=== PATIENT | male | born 1935 | race African-American/Black ===

== ENCOUNTER 2019-12-09 17:49 | Inpatient (IN) | payer MEDICARE, BC ==
[~2019-12-09] VITALS: Ht 175.3 cm; Wt 61.4 kg
[2019-12-09 20:20] VITALS: BP 127/65
[2019-12-09] MEDS ORDERED: NEPRO CARB STE237 ML PO (22:00)
[2019-12-09] MEDS ORDERED: ELIQUIS2.5 MG PO (22:00)
[2019-12-09] MEDS ORDERED: DOCUSATE SODIU250 MG ORAL (22:00)
[2019-12-09] MEDS ORDERED: DIALYVITE 3,001 EACH PO (22:00)
[2019-12-09] MEDS ORDERED: SEVELAMER HCL800 MG PO (22:00)
[2019-12-09] MEDS ORDERED: [UNRECOGNIZED DRUG - OTHER] PO (22:00)
[2019-12-09] MEDS ORDERED: FERROUS SULFAT325 MG ORAL (22:00)
[2019-12-09] MEDS ORDERED: epogen (22:00)
[2019-12-09] MEDS ORDERED: LIPITOR80 MG ORAL (22:00)
[2019-12-09] MEDS ORDERED: ASPIRIN81 MG ORAL (22:00)
[2019-12-09] MEDS ORDERED: CINACALCET HCL60 MG PO (22:00)
[2019-12-09] MEDS ORDERED: MIRALAX17 G2 ORAL (22:00)
[2019-12-09] MEDS ORDERED: [UNRECOGNIZED DRUG - OTHER] (22:05)
[2019-12-09] MEDS ORDERED: OXYCODONE HCL5 M2 ORAL (22:05)
[2019-12-09] MEDS ORDERED: ACETAMINOPHEN325 M1 ORAL (22:05)
[2019-12-09] MEDS ORDERED: oxyCODONE 5mg IR tab ORAL PRN (22:15)
[2019-12-10] VITALS: BP 110/57
[2019-12-10 04:00] VITALS: BP 108/59
[2019-12-10 07:23] LABS: BASOPHILS % (AUTO) 1.3 % (0.0-2.0); EOSINOPHILS % (AUTO) 2.1 % (0.0-3.0); HEMATOCRIT 24.6 % (42.0-52.0); HEMOGLOBIN 8.4 G/DL (14.2-18.0); LYMPHOCYTES % (AUTO) 28.8 % (20.0-45.0); MEAN CORPUSCULAR VOLUME 85 FL (80-99); MONOCYTES % (AUTO) 10.2 % (1.0-10.0); NEUTROPHILS % (AUTO) 57.7 % (45.0-75.0); PLATELET COUNT 177 K/UL (150-450); RED BLOOD COUNT 2.89 M/UL (4.70-6.10); RED CELL DISTRIBUTION WIDTH 12.7 % (11.6-14.8); WHITE BLOOD COUNT 5.8 K/UL (4.8-10.8)
[2019-12-10 07:25] LABS: % IRON SATURATION 33 % (15-50); IRON 52 ug/dL (50-175); TOTAL IRON BINDING CAPACITY 160 ug/dL (250-450)
[2019-12-10 07:47] LABS: ALANINE AMINOTRANSFERASE 15 U/L (12-78); ALBUMIN 2.9 G/DL (3.4-5.0); ALBUMIN/GLOBULIN RATIO 0.7 (1.0-2.7); ALKALINE PHOSPHATASE 103 U/L (46-116); ANION GAP 10 mmol/L (5-15); ASPARTATE AMINO TRANSFERASE 9 U/L (15-37); BILIRUBIN,TOTAL 0.3 MG/DL (0.2-1.0); BLOOD UREA NITROGEN 61 mg/dL (7-18); CALCIUM 8.8 MG/DL (8.5-10.1); CARBON DIOXIDE 29 MMOL/L (21-32); CHLORIDE 104 MMOL/L (98-107); CREATININE 7.8 MG/DL (0.55-1.30); POTASSIUM 3.5 MMOL/L (3.5-5.1); SODIUM 143 MMOL/L (136-145)
[2019-12-10 08:00] VITALS: BP 112/54
--- NOTE | 2019-12-10 08:30 | History and Physical Report ---
DATE OF ADMISSION: 12/09/2019 CHIEF COMPLAINT: Anemia, possible GI bleed, failure to thrive. HISTORY OF PRESENT ILLNESS: The patient is an 84-year-old male, known to me from the nursing home facility. He has had worsening anemia, etiology of which is unclear. Staff noted dark stools. There is concern about a possible GI bleed. In addition, the patient has not been eating well, has been more weak, has been mostly in bed. Because of the significant anemia, concerned about bleed. He is now admitted for further evaluation and care. PAST MEDICAL HISTORY: Significant for history of chronic kidney disease on hemodialysis, hypertension, atherosclerotic cardiovascular disease, diabetes, gait instability, questionable history of DVT, history of cervical radiculopathy and degenerative disc disease, status post discectomy. PAST SURGICAL HISTORY: Includes CABG and AV fistula. CURRENT MEDICATIONS: Reconciled and reviewed. ALLERGIES: None. FAMILY HISTORY: None. SOCIAL HISTORY: The patient is a prior smoker. No alcohol. No drugs. REVIEW OF SYSTEMS: GENERAL: Positive malaise, weakness. HEENT: No headaches or visual changes. CARDIOPULMONARY: No chest pain or shortness of breath. GASTROINTESTINAL: No nausea or vomiting. GENITOURINARY: No urgency or frequency. MUSCULOSKELETAL: No joint pain or swelling. NEUROLOGIC: No evidence of seizures. PHYSICAL EXAMINATION: VITAL SIGNS: Temperature 98 degrees, blood pressure 140/76, pulse 80, respirations 20. GENERAL: The patient is well developed, no apparent distress. HEART: Regular rate and rhythm. LUNGS: Clear. ABDOMEN: Soft, nontender, nondistended. EXTREMITIES: Without clubbing, cyanosis, or edema. LABORATORY DATA: Most recent laboratory showed hemoglobin 8.3, baseline was in the 11 to 12 range. ASSESSMENT: This is a pleasant male with a history of end-stage renal disease, anemia, diabetes, hypertension, history of ischemic cardiomyopathy, status post CABG, history of degenerative disc disease, status post cervical discectomy. PLAN: Followup laboratories. Check stool for occult blood. Eliquis and aspirin will be held until stool OB and hemoglobin is back. Renal and Cardiology consultations will be obtained. If stool occult blood is positive, he may require endoscopy. We will check a venous duplex of the legs. an EKG prior to reassess the indications for Apixaban as the patient is unclear of why he is currently on the medication. Kel Vazquez M.D. DR: TRICIA JOB#: [id number] CC:
[2019-12-10] MEDS: Docusate 250mg cap ORAL SCH ×2 (09:00→18:40)
[2019-12-10] MEDS ORDERED: Atorvastatin 80mg tab ORAL SCH (09:00)
[2019-12-10 10:28] LABS: FERRITIN 776 NG/ML (8-388)
--- NOTE | 2019-12-10 10:55 | Consultation ---
Consult Note Consult Note I was asked to evaluate the patient at the request of Dr. Vazquez for dialysis management. Patient was interviewed in room 301. He is a poor historian. He states that he gets dialysis Saturday in [facility]. He has been on dialysis for the past 5 years. Patient was admitted for :anemia, possible GI bleed, failure to thrive. The patient is an 84-year-old male, known to me from the [facility] facility. He has had worsening anemia, etiology of which is unclear. Staff noted dark stools. There is concern about a possible GI bleed. In addition, the patient has not been eating well, has been more weak, has been mostly in bed. Because of the significant anemia, concerned about bleed. He is now admitted for further evaluation and care. PAST MEDICAL HISTORY: chronic kidney disease on hemodialysis, hypertension, atherosclerotic cardiovascular disease, diabetes, gait instability, questionable history of DVT, history of cervical radiculopathy and degenerative disc disease, status post discectomy. ischemic cardiomyopathy, status post CABG Patient examined Reviewed Patient has an arm fistula for dialysis access . Assessment/Plan End-stage renal disease. HD 3 times a week. Severe anemia Failure to thrive CAD elevated Troponi HD today 2D echo Hold anticoags and asa monitor H&H GI eval per consultants Richie Vega MD Dec 10, 2019 10:55
[2019-12-10 11:00] LABS: % IRON SATURATION 32 % (15-50); IRON 53 ug/dL (50-175); TOTAL IRON BINDING CAPACITY 166 ug/dL (250-450)
[2019-12-10 12:00] VITALS: BP 114/57
[2019-12-10] MEDS ORDERED: Docusate 100mg cap ORAL SCH (13:00)
[2019-12-10 16:00] VITALS: BP 127/62
[2019-12-10] MEDS ORDERED: NovoLOG Insulin Flexpen SUBQ SCH (16:30)
[2019-12-10] MEDS ORDERED: Eliquis 2.5mg tablet ORAL SCH (18:00)
[2019-12-10 20:00] VITALS: BP 116/71
[2019-12-10] MEDS ORDERED: oxyCODONE 5mg IR tab ORAL PRN (21:00)
[2019-12-10] MEDS: NovoLOG Insulin Flexpen SUBQ SCH (21:00)
[2019-12-11] VITALS: BP 88/43
[2019-12-11 04:00] VITALS: BP 95/55
--- NOTE | 2019-12-11 06:15 | Consultation ---
DATE OF CONSULTATION: 12/10/2019 CARDIOLOGY CONSULTATION NOTE CONSULTING PHYSICIAN: Johan Graff M.D. REQUESTING PHYSICIAN: Kel Vazquez M.D. REASON FOR CONSULTATION: Atrial flutter in the setting of possible gastrointestinal bleed. HISTORY OF PRESENT ILLNESS: This 84-year-old male, resides at a intermediate facility. He has had progressive anemia. He was noted to have dark stools. He was transferred to the hospital for further evaluation. He has been on both anti-platelet and anticoagulant therapies. He has a history of atrial flutter and fibrillation and prior coronary artery bypass grafting for coronary artery disease. The patient has not had any chest pain. Denies shortness of breath or abdominal pain. He has not had any vomiting or bright red blood per rectum. PAST MEDICAL HISTORY: End-stage renal disease on hemodialysis, hypertensive heart disease, arteriosclerotic cardiovascular disease, coronary artery disease with prior coronary artery bypass grafting, type 2 diabetes mellitus, possible history of DVT, cervical radiculopathy, degenerative disk disease, history of discectomy, chronic obstructive pulmonary disease. MEDICATIONS: Reviewed and reconciled. ALLERGIES: None known. FAMILY HISTORY: Noncontributory. SOCIAL HISTORY: Prior smoker. No alcohol or substance abuse. REVIEW OF SYSTEMS: No history of retinopathy known. No recent use of steroids. No history of prostate cancer or elevated PSA. He does have back and joint pain and has recent discectomy. No history of seizures. 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 He has not had any complaints of chest pain. He had a prior coronary artery bypass grafting. He has chronic atrial flutter and is on anticoagulation. There is no record of his cardiac ejection fraction at this time. PHYSICAL EXAMINATION: VITAL SIGNS: Blood pressure 140/76, pulse 80, respirations 20, afebrile. HEENT: Conjunctivae pink. Oropharynx clear. NECK: Supple. LUNGS: With bilateral breath sounds. CARDIAC: Irregularly irregular. Normal S1 and S2 with a 1/6 systolic apical murmur. ABDOMEN: Soft and nontender. EXTREMITIES: No edema. No calf tenderness. LABORATORY DATA: Hemoglobin 8.4. DIAGNOSTIC DATA: EKG reveals atrial flutter with variable block and nonspecific ST changes. IMPRESSION: 1. Possible gastrointestinal bleeding. 2. Anemia, likely multifactorial. 3. Ischemic cardiomyopathy with stable angina. 4. Hypertension with controlled blood pressure. 5. End-stage renal disease, on hemodialysis. 6. Chronic atrial flutter/fibrillation, rate controlled. PLAN: 1. Stool occult blood. 2. Iron panel. 3. Hold anticoagulation and anti-platelet therapy. 4. Venous duplex scan of lower extremities. 5. Echocardiogram to assess left ventricular ejection fraction. 6. Titrate anti-failure regimen based on clinical parameters and results of echocardiogram. 7. Final decisions regarding long-term anticoagulation will depend on diagnostic workup. Johan Graff M.D. DR: Dipti JOB#: [id number] CC:
[2019-12-11] MEDS: NovoLOG Insulin Flexpen SUBQ SCH ×4 (06:30→21:00)
[2019-12-11 06:44] LABS: BASOPHILS % (AUTO) 0.7 % (0.0-2.0); EOSINOPHILS % (AUTO) 2.2 % (0.0-3.0); HEMATOCRIT 24.6 % (42.0-52.0); HEMOGLOBIN 8.4 G/DL (14.2-18.0); LYMPHOCYTES % (AUTO) 28.9 % (20.0-45.0); MEAN CORPUSCULAR VOLUME 85 FL (80-99); MONOCYTES % (AUTO) 9.9 % (1.0-10.0); NEUTROPHILS % (AUTO) 58.3 % (45.0-75.0); PLATELET COUNT 166 K/UL (150-450); RED BLOOD COUNT 2.88 M/UL (4.70-6.10); RED CELL DISTRIBUTION WIDTH 12.6 % (11.6-14.8); WHITE BLOOD COUNT 5.5 K/UL (4.8-10.8)
[2019-12-11 07:39] LABS: ALANINE AMINOTRANSFERASE 18 U/L (12-78); ALBUMIN 2.5 G/DL (3.4-5.0); ALBUMIN/GLOBULIN RATIO 0.6 (1.0-2.7); ALKALINE PHOSPHATASE 102 U/L (46-116); ANION GAP 10 mmol/L (5-15); ASPARTATE AMINO TRANSFERASE 13 U/L (15-37); BILIRUBIN,TOTAL 0.2 MG/DL (0.2-1.0); BLOOD UREA NITROGEN 42 mg/dL (7-18); CALCIUM 8.4 MG/DL (8.5-10.1); CARBON DIOXIDE 28 MMOL/L (21-32); CHLORIDE 101 MMOL/L (98-107); CHOLESTEROL 97 MG/DL (< 200); GAMMA GLUTAMYL TRANSPEPTIDASE 25 U/L (5-85); HDL CHOLESTEROL 50 MG/DL (40-60); PHOSPHORUS 1.4 MG/DL (2.5-4.9); POTASSIUM 3.3 MMOL/L (3.5-5.1); SODIUM 139 MMOL/L (136-145); TRIGLYCERIDES 70 MG/DL (30-150)
[2019-12-11 07:54] VITALS: BP 106/57
[2019-12-11] MEDS: Docusate 250mg cap ORAL SCH ×3 (09:00→18:00)
[2019-12-11] MEDS ORDERED: Eliquis 2.5mg tablet ORAL SCH (09:00)
[2019-12-11] MEDS ORDERED: Atorvastatin 80mg tab ORAL SCH ×2 (09:00→21:00)
--- NOTE | 2019-12-11 09:30 | Nephrology Progress Note ---
Assessment/Plan Problem List: (1) ESRD (end stage renal disease) on dialysis (2) Failure to thrive in adult (3) Coronary artery disease (4) Severe anemia Assessment End-stage renal disease. HD 3 times a week. Severe anemia work-up suggestive of anemia related to chronic kidney disease Failure to thrive CAD elevated Troponi Plan Dialyzed last night Magnesium and potassium supplement today 2D echo shows ejection fraction of 50% Hold anticoags and asa monitor H&H GI eval per consultants Subjective ROS Limited/Unobtainable: No Constitutional: Reports: malaise Objective Objective Last 24 Hour Vital Signs Date Time Temp Pulse Resp B/P (MAP) Pulse Ox O2 Delivery O2 Flow Rate FiO2 12/11/19 08:47 Room Air 12/11/19 08:00 52 12/11/19 07:54 98.2 56 18 106/57 (73) 98 12/11/19 04:00 45 12/11/19 04:00 98.1 46 19 95/55 (68) 98 12/11/19 00:00 98.1 48 19 88/43 (58) 98 12/10/19 21:00 Room Air 12/10/19 20:00 98.4 66 19 116/71 (86) 98 12/10/19 20:00 65 12/10/19 16:00 97.4 76 19 127/62 (83) 96 12/10/19 12:00 97.1 58 19 114/57 (76) 95 Intake and Output 12/10/19 12/11/19 19:00 07:00 Intake Total 600 ml 1050 ml Balance 600 ml 1050 ml Intake Oral 600 ml 250 ml Hemodialysis 800 ml # Bowel Movements 2 1 Laboratory Tests 12/11/19 05:40: White Blood Count 5.5, Red Blood Count 2.88L, Hemoglobin 8.4L, Hematocrit 24.6L , Mean Corpuscular Volume 85, Mean Corpuscular Hemoglobin 29.1, Mean Corpuscular Hemoglobin Concent 34.0, Red Cell Distribution Width 12.6, Platelet Count 166, Mean Platelet Volume 7.5, Neutrophils (%) (Auto) 58.3, Lymphocytes (% ) (Auto) 28.9, Monocytes (%) (Auto) 9.9, Eosinophils (%) (Auto) 2.2, Basophils ( %) (Auto) 0.7, Sodium Level 139, Potassium Level 3.3L, Chloride Level 101, Carbon Dioxide Level 28, Anion Gap 10, Blood Urea Nitrogen 42H, Creatinine 6.0H , Estimat Glomerular Filtration Rate 10.9, Glucose Level 126H, Hemoglobin A1c 6.4H, Uric Acid 3.1, Calcium Level 8.4L, Phosphorus Level 1.4L, Magnesium Level 2.1, Total Bilirubin 0.2, Gamma Glutamyl Transpeptidase 25, Aspartate Amino Transf (AST/SGOT) 13L, Alanine Aminotransferase (ALT/SGPT) 18, Alkaline Phosphatase 102, Troponin I 0.079H, C-Reactive Protein, Quantitative < 0.4, Pro- B-Type Natriuretic Peptide 7081H, Total Protein 6.4, Albumin 2.5L, Globulin 3.9 , Albumin/Globulin Ratio 0.6L, Triglycerides Level 70, Cholesterol Level 97, LDL Cholesterol 38, HDL Cholesterol 50, Cholesterol/HDL Ratio 1.9L, Thyroid Stimulating Hormone (TSH) 1.201 Height (Feet): 5 Height (Inches): 9.00 Weight (Pounds): 135 General Appearance: no apparent distress Cardiovascular: normal rate Respiratory/Chest: decreased breath sounds Abdomen: soft Objective No change Richie Vega MD Dec 11, 2019 09:30
[2019-12-11] MEDS ORDERED: Phospha 250 Neutral tab ORAL SCH (10:00)
[2019-12-11 12:00] VITALS: BP 112/57
--- NOTE | 2019-12-11 12:12 | Diagnostic Imaging Report ---
CLINICAL INDICATION:Pain, dark stools, possible GI bleed, anorexia, anemia TECHNIQUE: Patient ingested oral contrast. No IV contrast, per referring physician request. Spiral acquisitions obtained through the chest, abdomen, and pelvis. Multiplanar reconstructions were generated. Total dose length product 352 mGycm. CTDIvol(s) 5 mGy. Radiation dose was minimized using automated exposure control COMPARISON: none FINDINGS Chest: Atelectasis and/or scarring is seen at both lung bases. No infiltrates or effusions. There is a small somewhat ill-defined nodular versus groundglass opacity in the posterior left upper lobe, image 30 series 6. No masses. The heart is upper limits normal in size. There are extensive coronary artery calcifications. The main pulmonary arteries are ectatic, not frankly dilated, each measuring 2.7 cm in diameter. No mediastinal or hilar mass or adenopathy. The thyroid is somewhat heterogeneous bilaterally. No axillary or chest wall mass or adenopathy. There is bilateral gynecomastia. There is edema of the chest wall. There are degenerative changes of the thoracic spine. On the highest cuts, surgical hardware is seen in the cervical spine. Abdomen pelvis: The rectum is distended with stool, measuring up to 9 cm in diameter. There is mild thickening of the rectal wall. There are colonic diverticula. The appendix is normal. No small bowel distention or small bowel wall thickening. No free or loculated intraperitoneal gas or fluid. Lack of IV contrast limits assessment of the solid organs. Calcifications are seen within the liver. The gallbladder, bile ducts, pancreas, spleen, adrenals are unremarkable. The kidneys are somewhat atrophic. A 12 x 7 mm calculus is seen in the left renal lower pole collecting system. Other small calculi are seen within the left renal collecting system. The right kidney demonstrates a 15 mm cyst. No ureteral calculi. No hydronephrosis or hydroureter. The bladder is markedly distended. There are prostatic calcifications. No pelvic mass or adenopathy. There is generalized edema of the subcutaneous fat as well as of the retroperitoneal and abdominal fat. There is generalized dependent skin thickening. The bones demonstrate degenerative spondylosis changes. IMPRESSION: Rectal distention by stool, could indicate rectal fecal impaction. Mild rectal wall thickening could indicate a degree of stercoral proctitis No acute process Ill-defined nodular versus groundglass opacity in the posterior left upper lobe. Recommend short interval follow-up CT scan in 6-12 months if there is significant smoking history or other risk factors for lung carcinoma. No further follow-up necessary if there are no significant risk factors Ectatic but not frankly dilated pulmonary arteries, suggestive of but not diagnostic for pulmonary arterial hypertension Distended bladder Nonspecific heterogeneous thyroid Gynecomastia Colonic diverticulosis. No evidence of diverticulitis Somewhat atrophic bilateral kidneys Multiple nonobstructive left renal calyceal calculi. No evidence of ureteral calculus or hydronephrosis Mild anasarca, with generalized edema of the subcutaneous, retroperitoneal, and abdominal fat Other findings as noted, including degenerative spondylosis, granulomas calcifications within the liver, right renal cyst, prostatic calcifications, basilar pulmonary parenchymal atelectasis and/or scarring, evidence of prior cervical spine surgery The CT scanner at [facility] is accredited by the [employer] and the scans are performed using protocols designed to limit radiation exposure to as low as reasonably achievable to attain images of sufficient resolution adequate for diagnostic evaluation.
--- NOTE | 2019-12-11 13:32 | Consultation ---
History of Present Illness General Date patient seen: Dec 11, 2019 Present Illness HPI This is a very pleasant 84-year-old male with multiple medical committees who is a halfway resident that presented to [facility] for evaluation of arrhythmia, dark stools, failure to thrive. On admission identified to have wounds requiring care and management as well abnormal labs. Patient with malnutrition. Surgery called to evaluate and assist with care plan. Patient seen, patient evaluate, chart reviewed. Patient is awake alert but not a good historian. EMR reviewed for majority of history. Allergies: Coded Allergies: No Known Allergies (Unverified , 12/09/19) Medication History Scheduled Apixaban (Eliquis), 2.5 MG PO BID, (Reported) Aspirin* (Aspirin*), 81 MG ORAL DAILY, (Reported) Atorvastatin (Lipitor), 40 MG ORAL QHS, (Reported) Cinacalcet HCl (Cinacalcet HCl), 60 MG PO DAILY, (Reported) Docusate Sodium* (Docusate Sodium*), 250 MG ORAL TWICE A DAY, (Reported) Fa/Vit Bcomp&C/Se/Min Aa/Zn (Dialyvite 3,000 Tablet), 1 EACH PO DAILY, (Reported ) Ferrous Sulfate* (Ferrous Sulfate*), 325 MG ORAL DAILY, (Reported) Nut.tx.impaired Renal Fxn,Soy (Nepro Carb Steady), 237 ML PO with meals, ( Reported) Polyethylene Glycol 3350* (Miralax*), 17 GM ORAL DAILY, (Reported) Sevelamer HCl (Sevelamer HCl), 800 MG PO AC, (Reported) [renovite], PO DAILY, (Reported) Scheduled PRN Acetaminophen* (Acetaminophen 325MG Tablet*), 650 MG ORAL Q6H PRN for temp, ( Reported) Oxycodone Hcl* (Oxycodone Hcl*), 5 MG ORAL Q6H PRN for For Pain, (Reported) Miscellaneous Medications [epogen], Unknown Dose, (Reported) [guaif], (Reported) Patient History Limited by: age, medical condition History Provided By: Medical Record, PMD Healthcare decision maker Resuscitation status Full Code Advanced Directive on File No Past Medical/Surgical History Past Medical/Surgical History: (1) GIB (gastrointestinal bleeding) (2) Failure to thrive in adult (3) ESRD (end stage renal disease) on dialysis (4) Failure to thrive (5) Coronary artery disease (6) Severe anemia Review of Systems Review of Symptoms General ROS: no weight loss or fever Psychological ROS: no depression or mood changes, no memory loss Ophthalmic ROS: no visual changes or eye irritation ENT ROS: no nasal congestion, hearing loss, dizziness Allergy and Immunology ROS: no allergic symptoms or urticaria Hematological and Lymphatic ROS: no swollen glands, unusual bleeding or bruising Endocrine ROS: no polyuria, polydipsia, weight changes, temperature intolerance Respiratory ROS: no cough, shortness of breath, or wheezing Cardiovascular ROS: no chest pain or dyspnea on exertion Gastrointestinal ROS: denies abdominal pain, bright red blood in stool. Musculoskeletal ROS: no myalgias or arthralgias Neurological ROS: no TIA or stroke symptoms Dermatological ROS: no new or changing skin lesions, rashes or pruritis Minimal able to obtain from patient but seemingly denying most of the above Physical Exam Physical Exam General appearance: alert, cooperative, no distress, appears stated age Head: Normocephalic, without obvious abnormality, atraumatic Eyes: conjunctivae/corneas clear. PERRL, EOM's intact. Fundi benign Throat: Lips, mucosa, and tongue normal. Teeth and gums normal Neck: supple, symmetrical, trachea midline, no adenopathy, thyroid: not enlarged, symmetric, no tenderness/mass/nodules, no carotid bruit and no JVD Lungs: clear to auscultation bilaterally Heart: regular rate and rhythm, S1, S2 normal, no murmur, click, rub or gallop Abdomen: soft, non-tender. Bowel sounds normal. No masses, no organomegaly Extremities: extremities normal, atraumatic, no cyanosis or edema Pulses: 2+ and symmetric Skin: see below Neurologic: Grossly normal Last 24 Hour Vital Signs Date Time Temp Pulse Resp B/P (MAP) Pulse Ox O2 Delivery O2 Flow Rate FiO2 12/11/19 12:00 52 12/11/19 12:00 98.1 66 19 112/57 (75) 98 12/11/19 08:47 Room Air 12/11/19 08:00 52 12/11/19 07:54 98.2 56 18 106/57 (73) 98 12/11/19 04:00 45 12/11/19 04:00 98.1 46 19 95/55 (68) 98 12/11/19 00:00 98.1 48 19 88/43 (58) 98 12/10/19 21:00 Room Air 12/10/19 20:00 98.4 66 19 116/71 (86) 98 12/10/19 20:00 65 12/10/19 16:00 97.4 76 19 127/62 (83) 96 Intake and Output 12/10/19 12/11/19 19:00 07:00 Intake Total 600 ml 1050 ml Balance 600 ml 1050 ml Intake Oral 600 ml 250 ml Hemodialysis 800 ml # Bowel Movements 2 1 Laboratory Tests Test 12/11/19 05:40 White Blood Count 5.5 K/UL (4.8-10.8) Red Blood Count 2.88 M/UL (4.70-6.10) L Hemoglobin 8.4 G/DL (14.2-18.0) L Hematocrit 24.6 % (42.0-52.0) L Mean Corpuscular Volume 85 FL (80-99) Mean Corpuscular Hemoglobin 29.1 PG (27.0-31.0) Mean Corpuscular Hemoglobin Concent 34.0 G/DL (32.0-36.0) Red Cell Distribution Width 12.6 % (11.6-14.8) Platelet Count 166 K/UL (150-450) Mean Platelet Volume 7.5 FL (6.5-10.1) Neutrophils (%) (Auto) 58.3 % (45.0-75.0) Lymphocytes (%) (Auto) 28.9 % (20.0-45.0) Monocytes (%) (Auto) 9.9 % (1.0-10.0) Eosinophils (%) (Auto) 2.2 % (0.0-3.0) Basophils (%) (Auto) 0.7 % (0.0-2.0) Sodium Level 139 MMOL/L (136-145) Potassium Level 3.3 MMOL/L (3.5-5.1) L Chloride Level 101 MMOL/L (98-107) Carbon Dioxide Level 28 MMOL/L (21-32) Anion Gap 10 mmol/L (5-15) Blood Urea Nitrogen 42 mg/dL (7-18) H Creatinine 6.0 MG/DL (0.55-1.30) H Estimat Glomerular Filtration Rate 10.9 mL/min (>60) Glucose Level 126 MG/DL (74-106) H Hemoglobin A1c 6.4 % (4.3-6.0) H Uric Acid 3.1 MG/DL (2.6-7.2) Calcium Level 8.4 MG/DL (8.5-10.1) L Phosphorus Level 1.4 MG/DL (2.5-4.9) L Magnesium Level 2.1 MG/DL (1.8-2.4) Total Bilirubin 0.2 MG/DL (0.2-1.0) Gamma Glutamyl Transpeptidase 25 U/L (5-85) Aspartate Amino Transf (AST/SGOT) 13 U/L (15-37) L Alanine Aminotransferase (ALT/SGPT) 18 U/L (12-78) Alkaline Phosphatase 102 U/L (46-116) Troponin I 0.079 ng/mL (0.000-0.056) C-Reactive Protein, Quantitative < 0.4 mg/dL (0.00-0.90) Pro-B-Type Natriuretic Peptide 7081 pg/mL (0-125) H Total Protein 6.4 G/DL (6.4-8.2) Albumin 2.5 G/DL (3.4-5.0) L Globulin 3.9 g/dL Albumin/Globulin Ratio 0.6 (1.0-2.7) L Triglycerides Level 70 MG/DL (30-150) Cholesterol Level 97 MG/DL (< 200) LDL Cholesterol 38 mg/dL (<100) HDL Cholesterol 50 MG/DL (40-60) Cholesterol/HDL Ratio 1.9 (3.3-4.4) L Thyroid Stimulating Hormone (TSH) 1.201 uiU/mL (0.358-3.740) Height (Feet): 5 Height (Inches): 9.00 Weight (Pounds): 135 Medications Current Medications Medications (Trade) Dose Ordered Sig/Lamar Route PRN Reason Start Time Stop Time Status Last Admin Dose Admin Acetaminophen (Tylenol) 650 mg Q6H PRN ORAL temp 12/10/19 21:00 01/08/20 20:59 Apixaban (Eliquis) 2.5 mg BID ORAL 12/11/19 18:00 01/10/20 17:59 Atorvastatin Calcium (Lipitor) 40 mg QHS ORAL 12/11/19 21:00 01/09/20 08:59 Dextrose (Dextrose 50%) 25 ml Q30M PRN IV Hypoglycemia 12/10/19 20:45 01/09/20 15:44 Dextrose (Dextrose 50%) 50 ml Q30M PRN IV Hypoglycemia 12/10/19 20:45 01/09/20 15:44 Docusate Sodium (Colace) 250 mg TWICE A DAY ORAL 12/11/19 09:00 01/09/20 08:59 Insulin Aspart (NovoLOG) BEFORE MEALS AND HS SUBQ 12/10/19 21:00 01/09/20 16:29 Oxycodone HCl (Roxicodone) 5 mg Q6H PRN ORAL For Pain 12/10/19 21:00 12/16/19 20:59 Pantoprazole (Protonix) 40 mg EVERY 12 HOURS ORAL 12/10/19 21:00 01/09/20 11:29 12/11/19 09:01 Assessment/Plan Problem List: (1) Failure to thrive in adult Assessment & Plan: nutritional optimization will monitor intake cont diet ICD Codes: R62.7 - Adult failure to thrive SNOMED: 109795267 (2) Failure to thrive SNOMED: 99776333 (3) GIB (gastrointestinal bleeding) Assessment & Plan: Dark stools aneamia possible gi bleed but unsure CT reviewed as below. proctitis no active bleeding noted le without gross blood GI eval for scope will follow with recs thank you Rectal distention by stool, could indicate rectal fecal impaction. Mild rectal wall thickening could indicate a degree of stercoral proctitis No acute process Ill-defined nodular versus groundglass opacity in the posterior left upper lobe. Recommend short interval follow-up CT scan in 6-12 months if there is significant smoking history or other risk factors for lung carcinoma. No further follow-up necessary if there are no significant risk factors Ectatic but not frankly dilated pulmonary arteries, suggestive of but not diagnostic for pulmonary arterial hypertension Distended bladder Nonspecific heterogeneous thyroid Gynecomastia Colonic diverticulosis. No evidence of diverticulitis Somewhat atrophic bilateral kidneys Multiple nonobstructive left renal calyceal calculi. No evidence of ureteral calculus or hydronephrosis Mild anasarca, with generalized edema of the subcutaneous, retroperitoneal, and abdominal fat ICD Codes: K92.2 - Gastrointestinal hemorrhage, unspecified SNOMED: 32782719 (4) Decubitus skin ulcer Assessment & Plan: Pt presented on admission with full thickness stage 3 pressure injury L buttocks, resolving ulcer medial lateral R foot. Pt also noted to have several nodules anu chest. One open lesion sternum that 's dry. Pt stated lesions previously had drainage.No erythema or odor noted. Full thickness pressure injury L buttocks. (L)1cm x(W)0.8cm x(L)0.4cm. Base of wound beefy red and moist. Borders are macerated.Small amt serous exudate noted. Dark discoloration without induration or erythema periwound. Scattered areas of hyperpigmentation sacrum and L buttocks. Resolving ulcer medial/lateral R foot. Base of wound is moist, pale pink with small area in center that is red oozing small amt serosanguineous. Edges flat and adherent to base of wound. Both heels are boggy with non-blanching erythema. Tx.plan: Cleanse Wound L buttocks with Saline. Apply Therahoney. Apply Moisture Barrier Paste periwound. Cover with Optifoam drsg.Change every 3 days and prn. Swab Wound R foot with Betadine. Cover with Optifoam drsg. Change every 3 days and prn. APM/KATEY Mattress overlay. Reposition at least every 2hours or as tolerated. Off-load heels with Pillow. ICD Codes: L89.90 - Pressure ulcer of unspecified site, unspecified stage SNOMED: 264537886 Jovon Hernandez Dec 11, 2019 13:32
--- NOTE | 2019-12-11 15:04 | General Progress Note ---
Assessment/Plan Problem List: (1) Failure to thrive in adult ICD Codes: R62.7 - Adult failure to thrive SNOMED: 328918117 (2) ESRD (end stage renal disease) on dialysis ICD Codes: N18.6 - End stage renal disease; Z99.2 - Dependence on renal dialysis SNOMED: 973681670 (3) Coronary artery disease ICD Codes: I25.10 - Atherosclerotic heart disease of [place] coronary artery without angina pectoris SNOMED: 99624831 (4) Failure to thrive SNOMED: 63021251 (5) GIB (gastrointestinal bleeding) ICD Codes: K92.2 - Gastrointestinal hemorrhage, unspecified SNOMED: 03978239 (6) Decubitus skin ulcer ICD Codes: L89.90 - Pressure ulcer of unspecified site, unspecified stage SNOMED: 755126999 Status: stable, progressing Assessment/Plan: a/ elevated trop anemia stool opb neg esrd htn small sacral wound dementia p/ cautious resumption of anticoag monitor for bleeding PPI HD per renal transfuse as needed Subjective ROS Limited/Unobtainable: No Constitutional: Reports: malaise, weakness HEENT: Reports: no symptoms Cardiovascular: Reports: no symptoms Respiratory: Reports: no symptoms Gastrointestinal/Abdominal: Reports: no symptoms Genitourinary: Reports: no symptoms Neurologic/Psychiatric: Reports: no symptoms Endocrine: Reports: no symptoms Hematologic/Lymphatic: Reports: no symptoms Allergies: Coded Allergies: No Known Allergies (Unverified , 12/09/19) All Systems: reviewed and negative except above Subjective stool ob neg. cont cardiac rx. monitor h/h. serial trop 2d echo. pending, denies cp/sob. Objective Last 24 Hour Vital Signs Date Time Temp Pulse Resp B/P (MAP) Pulse Ox O2 Delivery O2 Flow Rate FiO2 12/11/19 12:00 52 12/11/19 12:00 98.1 66 19 112/57 (75) 98 12/11/19 08:47 Room Air 12/11/19 08:00 52 12/11/19 07:54 98.2 56 18 106/57 (73) 98 12/11/19 04:00 45 12/11/19 04:00 98.1 46 19 95/55 (68) 98 12/11/19 00:00 98.1 48 19 88/43 (58) 98 12/10/19 21:00 Room Air 12/10/19 20:00 98.4 66 19 116/71 (86) 98 12/10/19 20:00 65 12/10/19 16:00 97.4 76 19 127/62 (83) 96 Intake and Output 12/10/19 12/11/19 19:00 07:00 Intake Total 600 ml 1050 ml Balance 600 ml 1050 ml Intake Oral 600 ml 250 ml Hemodialysis 800 ml # Bowel Movements 2 1 Laboratory Tests 12/11/19 05:40: White Blood Count 5.5, Red Blood Count 2.88L, Hemoglobin 8.4L, Hematocrit 24.6L , Mean Corpuscular Volume 85, Mean Corpuscular Hemoglobin 29.1, Mean Corpuscular Hemoglobin Concent 34.0, Red Cell Distribution Width 12.6, Platelet Count 166, Mean Platelet Volume 7.5, Neutrophils (%) (Auto) 58.3, Lymphocytes (% ) (Auto) 28.9, Monocytes (%) (Auto) 9.9, Eosinophils (%) (Auto) 2.2, Basophils ( %) (Auto) 0.7, Sodium Level 139, Potassium Level 3.3L, Chloride Level 101, Carbon Dioxide Level 28, Anion Gap 10, Blood Urea Nitrogen 42H, Creatinine 6.0H , Estimat Glomerular Filtration Rate 10.9, Glucose Level 126H, Hemoglobin A1c 6.4H, Uric Acid 3.1, Calcium Level 8.4L, Phosphorus Level 1.4L, Magnesium Level 2.1, Total Bilirubin 0.2, Gamma Glutamyl Transpeptidase 25, Aspartate Amino Transf (AST/SGOT) 13L, Alanine Aminotransferase (ALT/SGPT) 18, Alkaline Phosphatase 102, Troponin I 0.079H, C-Reactive Protein, Quantitative < 0.4, Pro- B-Type Natriuretic Peptide 7081H, Total Protein 6.4, Albumin 2.5L, Globulin 3.9 , Albumin/Globulin Ratio 0.6L, Triglycerides Level 70, Cholesterol Level 97, LDL Cholesterol 38, HDL Cholesterol 50, Cholesterol/HDL Ratio 1.9L, Thyroid Stimulating Hormone (TSH) 1.201 Height (Feet): 5 Height (Inches): 9.00 Weight (Pounds): 135 General Appearance: WD/WN, alert EENT: TMs normal Neck: supple Cardiovascular: normal rate, regularly irregular Respiratory/Chest: chest wall non-tender, lungs clear, normal breath sounds, no respiratory distress, no accessory muscle use Abdomen: normal bowel sounds, non tender, soft, no organomegaly, no mass Edema: no edema noted Arm (L), no edema noted Arm (R), no edema noted Leg (L), no edema noted Leg (R), no edema noted Pedal (L), no edema noted Pedal (R), no edema noted Generalized 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
[2019-12-11 16:00] VITALS: BP 110/61
--- NOTE | 2019-12-11 17:45 | Progress Note ---
DATE: 12/11/2019 CARDIOLOGY PROGRESS NOTE SUBJECTIVE: The patient remains on registered nurse cardiac telemetry with atrial flutter, slow rate noted in the 40s while asleep. The patient's potassium today is only 3.3. He is not on any medications with negative chronotropic potential. PHYSICAL EXAMINATION: VITAL SIGNS: Blood pressure 112/57, pulse 52, and respirations 19. LUNGS: Clear. CARDIAC: Irregularly irregular. ABDOMEN: Soft. EXTREMITIES: No edema. LABORATORY DATA: Magnesium 2.1. Phosphorus 1.4. Hemoglobin 8.4. Stool occult blood negative. IMPRESSION: 1. Non-ST elevation myocardial infarction. 2. End-stage renal disease. 3. Chronic atrial flutter. 4. Conduction system disease with bradyarrhythmia. 5. Hypophosphatemia. 6. Hypomagnesemia, replaced. 7. Hypokalemia, adjusting . We would prefer low-potassium range in view of bradyarrhythmia. No signs of GI bleeding. 8. Anemia of chronic kidney disease, on Epogen. 9. Not ready for discharge to a lower level of care in view of bradyarrhythmias and possible need for further intervention. 10. Resuming full anticoagulation if no further bleeding signs. Johan Graff M.D. : IMTIAZ JOB#: [id number] CC:
[2019-12-11] MEDS: Eliquis 2.5mg tablet ORAL SCH (18:01)
[2019-12-11 20:00] VITALS: BP 106/51
[2019-12-12] VITALS: BP 102/52
[2019-12-12 04:00] VITALS: BP 110/50
[2019-12-12] MEDS: NovoLOG Insulin Flexpen SUBQ SCH ×3 (06:07→16:30)
[2019-12-12 07:24] LABS: BASOPHILS % (AUTO) 0.8 % (0.0-2.0); EOSINOPHILS % (AUTO) 1.4 % (0.0-3.0); HEMATOCRIT 28.1 % (42.0-52.0); HEMOGLOBIN 9.7 G/DL (14.2-18.0); LYMPHOCYTES % (AUTO) 25.7 % (20.0-45.0); MEAN CORPUSCULAR VOLUME 85 FL (80-99); MONOCYTES % (AUTO) 11.5 % (1.0-10.0); NEUTROPHILS % (AUTO) 60.6 % (45.0-75.0); PLATELET COUNT 190 K/UL (150-450); RED BLOOD COUNT 3.32 M/UL (4.70-6.10); RED CELL DISTRIBUTION WIDTH 12.6 % (11.6-14.8); WHITE BLOOD COUNT 6.2 K/UL (4.8-10.8)
[2019-12-12 07:30] LABS: ALANINE AMINOTRANSFERASE 13 U/L (12-78); ALBUMIN/GLOBULIN RATIO 0.7 (1.0-2.7); ALKALINE PHOSPHATASE 107 U/L (46-116); ANION GAP 12 mmol/L (5-15); ASPARTATE AMINO TRANSFERASE 26 U/L (15-37); BILIRUBIN,TOTAL 0.4 MG/DL (0.2-1.0); BLOOD UREA NITROGEN 62 mg/dL (7-18); CALCIUM 8.9 MG/DL (8.5-10.1); CARBON DIOXIDE 28 MMOL/L (21-32); CHLORIDE 101 MMOL/L (98-107); PHOSPHORUS 2.1 MG/DL (2.5-4.9); POTASSIUM 3.8 MMOL/L (3.5-5.1); SODIUM 141 MMOL/L (136-145)
[2019-12-12 08:00] VITALS: BP 100/52
[2019-12-12] MEDS: Docusate 250mg cap ORAL SCH ×3 (09:00→18:00)
[2019-12-12] MEDS: Eliquis 2.5mg tablet ORAL SCH ×3 (09:00→18:00)
[2019-12-12] MEDS ORDERED: Phospha 250 Neutral tab ORAL SCH (11:00)
[2019-12-12 12:00] VITALS: BP 106/55
--- NOTE | 2019-12-12 12:12 | Nephrology Progress Note ---
Assessment/Plan Problem List: (1) ESRD (end stage renal disease) on dialysis (2) Failure to thrive in adult (3) Coronary artery disease (4) Severe anemia Assessment End-stage renal disease. HD 3 times a week. Severe anemia work-up suggestive of anemia related to chronic kidney disease Failure to thrive CAD elevated Troponi Plan Discharged was held yesterday due to bradycardia plan is to dialyse today and DC Magnesium and potassium supplement 2D echo shows ejection fraction of 50% Hold anticoags and asa monitor H&H GI eval per consultants Subjective ROS Limited/Unobtainable: No Constitutional: Reports: other - anxious to be discharged Objective Objective Last 24 Hour Vital Signs Date Time Temp Pulse Resp B/P (MAP) Pulse Ox O2 Delivery O2 Flow Rate FiO2 12/12/19 09:00 Room Air 12/12/19 08:00 53 12/12/19 08:00 97.3 58 20 100/52 (68) 98 12/12/19 04:00 97.6 64 16 110/50 (70) 97 12/12/19 04:00 66 12/12/19 00:00 50 12/12/19 00:00 97.5 56 16 102/52 (69) 97 12/11/19 21:00 Room Air 12/11/19 20:00 66 12/11/19 20:00 97.6 55 16 106/51 (69) 97 12/11/19 16:00 46 12/11/19 16:00 98.0 89 20 110/61 (77) 96 Intake and Output 12/11/19 12/12/19 19:00 07:00 Intake Total 200 ml Balance 200 ml Intake Oral 200 ml # Voids 3 # Bowel Movements 1 1 Current Medications Medications (Trade) Dose Ordered Sig/Lamar Route PRN Reason Start Time Stop Time Status Last Admin Dose Admin Acetaminophen (Tylenol) 650 mg Q6H PRN ORAL temp 12/10/19 21:00 01/08/20 20:59 Apixaban (Eliquis) 2.5 mg BID ORAL 12/11/19 18:00 01/10/20 17:59 12/11/19 18:01 Atorvastatin Calcium (Lipitor) 40 mg QHS ORAL 12/11/19 21:00 01/09/20 08:59 12/11/19 21:07 Dextrose (Dextrose 50%) 25 ml Q30M PRN IV Hypoglycemia 12/10/19 20:45 01/09/20 15:44 Dextrose (Dextrose 50%) 50 ml Q30M PRN IV Hypoglycemia 12/10/19 20:45 01/09/20 15:44 Docusate Sodium (Colace) 250 mg TWICE A DAY ORAL 12/11/19 09:00 01/09/20 08:59 12/11/19 18:00 Insulin Aspart (NovoLOG) BEFORE MEALS AND HS SUBQ 12/10/19 21:00 01/09/20 16:29 Oxycodone HCl (Roxicodone) 5 mg Q6H PRN ORAL For Pain 12/10/19 21:00 12/16/19 20:59 Pantoprazole (Protonix) 40 mg EVERY 12 HOURS ORAL 12/10/19 21:00 01/09/20 11:29 12/11/19 21:07 Laboratory Tests 12/12/19 06:25: White Blood Count 6.2, Red Blood Count 3.32L, Hemoglobin 9.7L, Hematocrit 28.1L , Mean Corpuscular Volume 85, Mean Corpuscular Hemoglobin 29.3, Mean Corpuscular Hemoglobin Concent 34.6, Red Cell Distribution Width 12.6, Platelet Count 190, Mean Platelet Volume 7.6, Neutrophils (%) (Auto) 60.6, Lymphocytes (% ) (Auto) 25.7, Monocytes (%) (Auto) 11.5H, Eosinophils (%) (Auto) 1.4, Basophils (%) (Auto) 0.8, Sodium Level 141, Potassium Level 3.8, Chloride Level 101, Carbon Dioxide Level 28, Anion Gap 12, Blood Urea Nitrogen 62H, Creatinine 8.0H, Estimat Glomerular Filtration Rate 7.9, Glucose Level 121H, Calcium Level 8.9, Phosphorus Level 2.1L, Magnesium Level 2.3, Total Bilirubin 0.4, Aspartate Amino Transf (AST/SGOT) 26, Alanine Aminotransferase (ALT/SGPT) 13, Alkaline Phosphatase 107, Total Protein 7.1, Albumin 3.0L, Globulin 4.1, Albumin/ Globulin Ratio 0.7L Height (Feet): 5 Height (Inches): 9.00 Weight (Pounds): 135 General Appearance: no apparent distress Cardiovascular: bradycardia Respiratory/Chest: lungs clear Abdomen: soft Objective No change Fouladian,Richie MD Dec 12, 2019 12:12
[2019-12-12 16:00] VITALS: BP 116/61
--- NOTE | 2019-12-12 23:45 | Progress Note ---
DATE: 12/12/2019 SUBJECTIVE: The patient is without distress. He has refused IV access. He completed dialysis. PHYSICAL EXAMINATION: VITAL SIGNS: Blood pressure 106/55, pulse 56, respiratory rate 20. Afebrile. Monitored rhythm, atrial flutter with slow ventricular response. No pauses. LUNGS: Diminished breath sounds. No rales. HEART: Irregularly irregular rhythm. Slow rate. 1/6 systolic murmur at apex. ABDOMEN: Soft. No edema. DIAGNOSTIC AND LABORATORY DATA: Potassium 3.8, phosphorus 2.1, albumin 3. White count 6.2, hemoglobin 9.7. Magnesium 2.3. IMPRESSION: 1. Chronic ischemic heart disease. 2. Possible non-ST elevation myocardial infarction. 3. Chronic atrial flutter with slow ventricular response. 4. End-stage renal disease. 5. Euthyroid state. 6. Mild protein-calorie malnutrition. 7. Hypophosphatemia. 8. End-stage renal disease, on hemodialysis. PLAN: 1. Returning to the [facility] facility on current regimen. 2. The patient to avoid any medications with negative chronotropic potential. 3. The patient is to continue with anti-lipid and anticoagulant therapy. 4. The patient's hemoglobin is too wide to be watched closely. 5. The patient will remain with hemodialysis and ultrafiltration as an outpatient. 6. Phosphorus supplement has been given. 7. Outpatient Cardiology followup will be arranged. 8. The patient may need a permanent pacemaker in the future on the basis of his underlying conduction system disease. 9. He is on cardioembolic prophylaxis at this time with apixaban. Dose adjusted for renal failure. Johan Graff M.D. DR: SHEKHAR JOB#: [id number] CC:
--- NOTE | 2019-12-13 01:15 | Discharge Summary ---
DATE OF ADMISSION: 12/08/2019 DATE OF DISCHARGE: 12/12/2019 ADMISSION DIAGNOSES: 1. Failure to thrive. 2. Atrial fibrillation. 3. Hypertension. 4. End-stage renal disease, on chronic hemodialysis. DISCHARGE DIAGNOSES: 1. Failure to thrive. 2. Atrial fibrillation. 3. Hypertension. 4. End-stage renal disease, on chronic hemodialysis. 5. Flutter and bradycardia. HOSPITAL COURSE: The patient is a pleasant male, who was transferred from a assisted facility, presented with complaints of generalized malaise, weakness, and anemia. He was noted to be anemic. Stool occult blood was negative. It was felt that most likely his anemia is related to his chronic kidney disease. His hospital course was complicated by bradycardia. He was noted to have a flutter. He was resumed on his Eliquis for stroke prophylaxis. Declined an additional workup. With respect to his bradycardia, he was clinically stable. He is also . [facility] in [facility] condition to a assisted facility. He will be follow up in one to two days. DISCHARGE MEDICATIONS: Please see discharge medication list for discharge medications. DIET: Cardiac renal diet. Kel Vazquez M.D. DR: TRICIA JOB#: [id number] CC:
--- NOTE | 2019-12-15 20:54 | Coder Physician Query ---
Clarification is required for compliance, coding accuracy, and to reflect severity of illness for this patient. Dear Dr. Johan Graff Date:12/15/19 IMPRESSION: PROGRESS NOTE: 12/12/19 2. Possible non-ST elevation myocardial infarction. elevated Troponin: 12/10/19 .095 12/11/19 .079 DIAGNOSTIC DATA: EKG reveals atrial flutter with variable block and nonspecific ST changes. - A diagnois of__NSTEMI was made in the medical record on PROGRESS NOTES 12/11/19, 12/13/19, not mentioned in H&P or Discharge summary by attending. Upon review, it is difficult to determine whether this diagnosis has been ruled in, ruled out,or is still being worked up. Please indicate below the status of the aforementioned diagnosis. [] Treated and resolve [] Presumed and treated [] Currently under treatment [] Still being worked-up [] Ruled out Present on Admission: [] Yes [] No [] Clinically Undetermined JOHAN GRAFF M.D. Date Please also document in your Progress Notes and/or Discharge Summary and indicate if the condition was present on admission. [facility]
== END 2019-12-12 19:01 | DRG 640 ==
LOC: 3E 20:03 → 2E 12-10 18:52
PROC: 5A1D70Z Performance of Urinary Filtration, Intermittent, Less than 6 Hours Per Day (ICD-10-PCS; principal; 2019-12-10)
DX: R62.7 Adult failure to thrive (principal); N18.6 End stage renal disease; L89.323 Pressure ulcer of left buttock, stage 3; I21.4 Non-ST elevation (NSTEMI) myocardial infarction; I12.0 Hypertensive chronic kidney disease with stage 5 chronic kidney disease or end stage renal disease; I48.92 Unspecified atrial flutter; K92.2 Gastrointestinal hemorrhage, unspecified; E44.1 Mild protein-calorie malnutrition; D63.1 Anemia in chronic kidney disease; E11.22 Type 2 diabetes mellitus with diabetic chronic kidney disease; I48.91 Unspecified atrial fibrillation; I25.5 Ischemic cardiomyopathy; Z87.891 Personal history of nicotine dependence; M50.10 Cervical disc disorder with radiculopathy, unspecified cervical region; Z95.1 Presence of aortocoronary bypass graft; Z86.718 Personal history of other venous thrombosis and embolism; Z79.01 Long term (current) use of anticoagulants; I25.118 Atherosclerotic heart disease of native coronary artery with other forms of angina pectoris; N20.0 Calculus of kidney; E83.39 Other disorders of phosphorus metabolism; R00.1 Bradycardia, unspecified
CPT/HCPCS: 36415; 71250; 74176; 80053; 80061; 82270; 82607; 82728; 82746; 82962; 82977; 83036; 83540; 83550; 83735; 83880; 84100; 84443; 84484; 84550; 85025; 86140; 86706; 87081; 93005; 93306; 93970; C9399; J1815; J8499